=== PATIENT | female | born 2000 | race Caucasian/White ===

== ENCOUNTER 2022-04-09 16:59 | Inpatient (IN) | payer MEDICAID, OTHER ==
[~2022-04-09] VITALS: Ht 157.5 cm; Wt 44.7 kg
[2022-04-09 19:43] LABS: Alanine Aminotransferase 27 U/L (13-56); Albumin 4.3 g/dL (3.4-5.0); Anion Gap 12 (5-15); Aspartate Aminotransferase 25 U/L (15-37); BUN/Creatinine Ratio 24.1; Blood Urea Nitrogen 13 mg/dL (7-18); Calcium 8.7 mg/dL (8.5-10.1); Carbon Dioxide 19 mmol/L (21-32); Chloride 109 mmol/L (98-107); GFR African American 180 mL/min; GFR Non-African American 149 mL/min; Glucose 127 mg/dL (74-106); Potassium 4.6 mmol/L (3.5-5.1); Sodium 140 mmol/L (136-145)
[2022-04-09 19:54] LABS: Alkaline Phosphatase 82 U/L (45-117); Bilirubin, Total 0.8 mg/dL (0.2-1.0); Total Protein 7.9 g/dL (6.4-8.2)
[2022-04-09 19:58] LABS: Basophils # (auto) 0.1 10 ^3/uL (0-0.2); Basophils % (auto) 0.6 % (0.0-2.0); Eosinophils # (auto) 0.1 10 ^3/uL (0-0.8); Eosinophils % (auto) 0.4 % (0.0-7.0); Lymphocytes # (auto) 4.3 10 ^3/uL (0.4-5.4); Lymphocytes % (auto) 29.5 % (10.0-50.0); Mean Corpuscular Hemoglobin 11.5 pg (28.0-32.0); Mean Corpuscular Hgb Conc. 23.7 g/dL (32.0-36.0); Mean Corpuscular Volume 48.7 fL (80.0-100.0); Monocytes # (auto) 0.7 10 ^3/uL (0-1.3); Monocytes % (auto) 4.7 % (0.0-12.0); Neutrophils # (auto) 9.4 10 ^3/uL (1.6-8.6); Neutrophils % (auto) 64.8 % (37.0-80.0); Nucleated Red Blood Cells % 0.1 %; Red Blood Cells 4.51 10^6/uL (4.0-5.20); White Blood Cell 14.5 10^3/uL (4.4-10.8)
[2022-04-09 20:19] LABS: Hemoglobin 5.2 g/dL (12.2-16.2)
[2022-04-09] MEDS ORDERED: ONDANSETRON HCL 4 MG/2 ML VIAL IV PRN (23:30)
[2022-04-09 23:59] LABS: INR 1.12 (0.9-1.15); Partial Thromboplastin Time 25.1 sec (24.6-33.4)
[2022-04-10] VITALS (15 sets, daily range): BP systolic 112–161; BP diastolic 62–107
[2022-04-10] MEDS ORDERED: ACETAMINOPHEN 325 MG TAB PO ONE (02:45)
[2022-04-10 03:13] LABS: % Iron Saturation 2.1 % (15-50)
[2022-04-10 06:30] LABS: Urine Bacteria NONE SEEN /hpf (None Seen); Urine Blood Negative /uL (Negative); Urine Specific Gravity 1.023 (1.001-1.035); Urine WBC <1 /hpf (0 - 5)
[2022-04-10 07:19] LABS: Lactic Acid w/Reflex 3.1 mmol/L (0.4-2.0)
[2022-04-10] MEDS: cefTRIAXone 1GM/50ML D5W 50 ML IV SCH (08:15)
[2022-04-10] MEDS ORDERED: PANTOPRAZOLE 40 MG TAB PO SCH (10:00)
[2022-04-10 10:45] LABS: BUN/Creatinine Ratio 28.1; Calcium 8.6 mg/dL (8.5-10.1)
[2022-04-10 12:21] LABS: Eosinophils # (auto) 0 10 ^3/uL (0-0.8); Eosinophils % (auto) 0.2 % (0.0-7.0); Nucleated Red Blood Cells % 0.7 %
[2022-04-10 12:22] LABS: Basophils # (auto) 0 10 ^3/uL (0-0.2); Basophils % (auto) 0.5 % (0.0-2.0); Hematocrit 23.1 % (36.0-46.0); Lymphocytes % (auto) 10.3 % (10.0-50.0); Mean Corpuscular Hemoglobin 14.6 pg (28.0-32.0); Mean Corpuscular Hgb Conc. 26.5 g/dL (32.0-36.0); Mean Corpuscular Volume 54.9 fL (80.0-100.0); Monocytes # (auto) 0.6 10 ^3/uL (0-1.3); Monocytes % (auto) 6.7 % (0.0-12.0); Neutrophils # (auto) 7.7 10 ^3/uL (1.6-8.6); Neutrophils % (auto) 82.3 % (37.0-80.0); Red Blood Cells 4.22 10^6/uL (4.0-5.20); Red Cell Distribution Width 26.8 % (11.8-14.3); White Blood Cell 9.4 10^3/uL (4.4-10.8)
[2022-04-10 12:28] LABS: Hemoglobin 6.1 g/dL (12.2-16.2)
[2022-04-10] MEDS ORDERED: IOHEXOL 350 MG/ML 100ML IJ ONE (13:52)
[2022-04-10] MEDS ORDERED: ACETAMINOPHEN 650 MG RECT SUPP PR PRN (14:00)
[2022-04-10] MEDS ORDERED: ACETAMINOPHEN 500 MG TAB PO PRN (14:00)
[2022-04-10] MEDS: SODIUM FERR GLUC 62.5MG/5ML 125 MG in SODIUM CHL 0.9% 100 ML IV SCH (21:27)
[2022-04-11 05:00] VITALS: BP 106/71
[2022-04-11 05:43] LABS: Basophils # (auto) 0 10 ^3/uL (0-0.2); Basophils % (auto) 0.5 % (0.0-2.0); Eosinophils # (auto) 0.1 10 ^3/uL (0-0.8); Lymphocytes % (auto) 22.8 % (10.0-50.0); Mean Corpuscular Hemoglobin 17.8 pg (28.0-32.0)
[2022-04-11 05:45] LABS: Eosinophils % (auto) 1.2 % (0.0-7.0); Hematocrit 33.1 % (36.0-46.0); Hemoglobin 9.5 g/dL (12.2-16.2); Lymphocytes # (auto) 1.9 10 ^3/uL (0.4-5.4); Mean Corpuscular Hgb Conc. 28.8 g/dL (32.0-36.0); Mean Corpuscular Volume 61.7 fL (80.0-100.0); Monocytes # (auto) 0.7 10 ^3/uL (0-1.3); Monocytes % (auto) 7.8 % (0.0-12.0); Neutrophils # (auto) 5.8 10 ^3/uL (1.6-8.6); Neutrophils % (auto) 67.7 % (37.0-80.0); Nucleated Red Blood Cells % 0.6 %; Red Blood Cells 5.36 10^6/uL (4.0-5.20); White Blood Cell 8.5 10^3/uL (4.4-10.8)
[2022-04-11 05:59] LABS: Red Cell Distribution Width 43.1 % (11.8-14.3)
[2022-04-11] MEDS: cefTRIAXone 1GM/50ML D5W 50 ML IV SCH (08:56)
[2022-04-11 09:00] VITALS: BP 128/79
[2022-04-11] MEDS ORDERED: PANTOPRAZOLE 40 MG/10 ML VIAL INJ IV SCH (10:00)
[2022-04-11] MEDS: levoFLOXacin 500 MG TAB PO SCH (10:37)
[2022-04-11] MEDS: SODIUM FERR GLUC 62.5MG/5ML 125 MG in SODIUM CHL 0.9% 100 ML IV SCH (12:00)
[2022-04-11 12:30] VITALS: BP 117/70
[2022-04-11 16:57] VITALS: BP 141/88
[2022-04-11] MEDS: FERROUS SULFATE 300 MG/5 ML ORAL LIQ PO SCH (17:35)
[2022-04-11] MEDS ORDERED: FERROUS SULFATE 325mg EC TAB PO SCH (18:00)
[2022-04-11] MEDS: PANTOPRAZOLE 40 MG TAB PO SCH (22:00)
[2022-04-12 00:30] VITALS: BP 135/70
[2022-04-12 06:03] VITALS: BP 130/77
[2022-04-12 09:34] VITALS: BP 130/79
[2022-04-12] MEDS ORDERED: LEVO500T31 PO (09:51)
[2022-04-12] MEDS ORDERED: FERR-7 PO (09:51)
[2022-04-12] MEDS ORDERED: PANT40T PO (09:51)
[2022-04-12] MEDS: FERROUS SULFATE 300 MG/5 ML ORAL LIQ PO SCH (09:56)
[2022-04-12] MEDS: PANTOPRAZOLE 40 MG TAB PO SCH (09:57)
[2022-04-12] MEDS ORDERED: PANTOPRAZOLE 40 MG TAB PO SCH (10:00)
[2022-04-12] MEDS: levoFLOXacin 500 MG TAB PO SCH (10:00)
[2022-04-12 12:27] VITALS: BP 131/75
== END 2022-04-12 15:21 | disposition home or self-care (01) | DRG 720 ==
LOC: ER 16:59 → OVERFLOW 23:28 → EAST 04-10 16:00
PROVIDERS: ADMIT Nurse Practitioner; ATTEND Family Medicine
PROC: 30233N1 Transfusion of Nonautologous Red Blood Cells into Peripheral Vein, Percutaneous Approach (ICD-10-PCS; principal; 2022-04-10)
DX: A41.9 Sepsis, unspecified organism (principal); R71.0 Precipitous drop in hematocrit; M25.551 Pain in right hip; N92.0 Excessive and frequent menstruation with regular cycle; Z96.641 Presence of right artificial hip joint; R55 Syncope and collapse; Z74.01 Bed confinement status; Z20.822 Contact with and (suspected) exposure to COVID-19
CPT/HCPCS: 36415; 36430; 73700; 80048; 80053; 81001; 83540; 83550; 83605; 85025; 85610; 85730; 86850; 86900; 86901; 86920; 87040; 87426; 96365; G0378; J0696

== ENCOUNTER 2024-11-20 10:05 | Inpatient (IN) | payer MEDICAID ==
[~2024-11-20] VITALS: Ht 157.5 cm; Wt 39.6 kg
[~2024-11-20 10:05] MED LIST: FERR-7 PO; PANT40T PO
--- NOTE | 2024-11-20 10:59 | ED.PDOC ---
GI ASSESSMENT HPI Comments 23 y/o F, brought in by siblings, with PMHx of cerebral palsy and HTN presents to the ED for CC of constipation. Per patient's siblings, patient has been unable to have a regular bowel movement since, 11/10/24 without the use of enemas or milk of magnesium. Patient's siblings report, patient usually has regular scheduled bowel movements however, has not had one in the last x9days. No other symptoms or modifying factors present at this time. Chief Complaint: Constipation Time Seen by MD: 10:55 Reviewed Notes: Nurses Notes, Medications, Allergies Allergies: Coded Allergies: No Known Drug Allergy (Verified Allergy, Unknown, 04/09/22) Home Meds Active Scripts Ferrous Sulfate (Iron) 325 Mg Tab, 325 MG PO BID, #60 TAB Prov:MARIO ECNARNACION MD 04/12/22 Pantoprazole Sodium Sesquihydr (Pantoprazole Sodium) 40 Mg Tab, 40 MG PO BID, #60 TAB Prov:MARIO ENCARNACION MD 04/12/22 Information Source: Relative (Sibling) Mode of Arrival: Wheelchair Timing: Weeks Duration: Since onset Prehospital treatment: None Quality: None Vomitus: None Stool: Impaction Severity: Moderate Recent: None Recent Hx of: None Pain Location: None Modifying Factors: Nothing Associated sign and symptoms: Constipation Past Medical History PAST MEDICAL HISTORY: Anemia Surgical History: Denies all surgeries LIGHT OIL OPERATOR History: Denies all LIGHT OIL OPERATOR Hx Family History Family History: Reviewed,noncontributory to illness Social History Smoker: Non-Smoker Alcohol: Denies ETOH Use Drugs: Denies Drug Use Lives In: Home Constitutional: denies: chills, diaphoresis, fatigue, fever, malaise, sweats, weakness, others EENTM: denies: blurred vision, double vision, ear bleeding, ear discharge, ear drainage, ear pain, ear ringing, eye pain, eye redness, hearing loss, mouth pain, mouth swelling, nasal discharge, nose bleeding, nose congestion, nose pain, photophobia, tearing, throat pain, throat swelling, voice changes, others Respiratory: denies: cough, hemoptysis, orthopnea, SOB at rest, shortness of breath, SOB with excertion, stridor, wheezing, others Cardiovascular: denies: chest pain, dizzy spells, diaphoresis, Dyspnea on exertion, edema, irregular heart beat, left arm pain, lightheadedness, p alpitations, PND, syncope, others Gastrointestinal: reports: constipated; denies: abdomen distended, abdominal pain, blood streaked bowels, diarrhea, dysphagia, difficulty swallowing, hematemesis, melena, nausea, poor appetite, poor fluid intake, rectal bleeding, rectal pain, vomiting, others Genitourinary: denies: abnormal vagina bleeding, burning, dyspareunia, dysuria, flank pain, frequency, hematuria, incontinence, pain, , vagina di scharge, urgency, others Neurological: denies: dizziness, fainting, headache, left sided numbness, left sided weakness, numbness, paresthesia, pre-existing deficit, right sided numbness, right sided weakness, seizure, speech problems, tingling, tremors, weakness, others Musculoskeletal: denies: back pain, gout, joint pain, joint swelling, muscle pain, muscle stiffness, neck pain, others Integumetry: denies: bruises, change in color, change in hair/nails, dryness, laceration, lesions, lumps, rash, wounds, others Allergic/Immunocompromised: denies: Difficulty Healing, Frequent Infections, Hives, Itching, others Hematologic/Lymphatic: denies: anemia, blood clots, easy bleeding, easy bruising, swollen glands, others Endocrine: denies: excessive hunger, excessive sweating, excessive thirst, excessive urination, flushing, intolerance to cold, intolerance to heat, unexplained weight gain, unexplained weight loss, others Psychiatric: denies: anxiety, bipolar disorder, depression, hopeless, panic disorder, schizophrenia, sleepless, suicidal, others All Other Systems: Reviewed and Negative Physical Exam General Appearance: Moderate Distress HEENT: Normal ENT Inspection, Pharynx Normal, TMs Normal Neck: Full Range of Motion, Non-Tender, Normal, Normal Inspection Respiratory: Chest Non-Tender Cardiovascular: No Edema, No JVD, No Murmur, No Gallop, Normal Peripheral Pulses, Tachycardia Breast Exam: Deferred Gastrointestinal: No Organomegaly, Non Tender, No Pulsatile Mass, Normal Bowel Sounds, Soft Genitalia: Deferred Pelvic: Deferred Rectal: Deferred Extremities: No calf tenderness, Normal range of motion Musculoskeletal : Apperance: Normal Neurologic: No Motor Deficits, No Sensory Deficits, Other (Cerebral palsy) Cerebellar Function: NOT DONE Reflexes: NOT DONE Skin: Dry, Normal Color, Warm Peripheral Pulses: 3+ Radial (R), 3+ Radial (L) Lymphatic: No Adenopathy Was a procedure done? Was a procedure done?: No GI differential Dx Differential Diagnosis: Bowel Obstruction, Constipation, Esophagitis, Gastritis/PUD, Gastroenteritis X-Ray, Labs, Meds, VS Vital Signs Date Time Temp Pulse Resp B/P (MAP) Pulse Ox O2 Delivery O2 Flow Rate FiO2 11/20/24 11:00 100.4 130 18 169/95 (119) 90 100.4 11/20/24 10:10 98.1 137 24 141/70 (93) 96 98.1 Patient appropriate. Family at bedside. Mild fever. Has not had a bowel movement in days. Cerebral palsy. Establish intravenous access. Was given fluids. Possible urosepsis. Possible colitis. Explained to the family. She continues to be tachycardic. Possible urosepsis. Continue to monitor. Time of 1ST Reevaluation: 11:25 Reevaluation 1ST: Unchanged Patient Education/Counseling: Diagnosis, Treatment Family Education/Counseling: No Family Present Departure 1 Departure Time of Disposition: 12:02 Impression: Primary Impression: Cerebral palsy Qualified Codes: G80.9 - Cerebral palsy, unspecified Additional Impression: Irritable bowel syndrome Qualified Codes: K58.1 - Irritable bowel syndrome with constipation Disposition: ADMITTED INPATIENT Admit to: Med Surg Condition: Guarded Critical Care Note Critical Care Time?: No Stability Stability form required: No Heart Score Heart Score: Heart Score Response (Comments) Value History N/A 0 EKG N/A 0 Age N/A 0 Risk Factors N/A 0 Troponin N/A 0 Total 0 I personally scribed for YAKOV JEAN MD ([email or web address]) on 11/20/24 at 10:59. E lectronically submitted by Nelly Harrell ([email or web address]). I personally scribed for YAKOV JEAN MD ([email or web address]) on 11/20/24 at 11:02. Electronically submitted by Nelly Harrell ([email or web address]). I personally scribed for YAKOV JEAN MD ([email or web address]) on 11/20/24 at 11:10. Electronically submitted by Nelly Harrell ([email or web address]). YAKOV JEAN MD November 20, 2024 10:59
[2024-11-20 12:00] VITALS: PULSE 130; RESP 18; O2SAT 99
[2024-11-20] MEDS: SODIUM CHLORIDE 0.9% 1,000 ML IV ONE ×2 (12:25→12:52)
--- NOTE | 2024-11-20 12:46 | DVH ---
EXAM: XY CHEST PORTABLE REASON FOR EXAM: sob TECHNIQUE: 1 view of the chest COMPARISON: None FINDINGS/IMPRESSION: LUNGS: No pleural effusion, consolidation, or pneumothorax MEDIASTINUM: Unremarkable BONES: No acute osseous abnormality OTHER: None
--- NOTE | 2024-11-20 13:14 | DVH ---
Exam: CT CT AB PEL WO CON-NO ORAL OR IV History: colitis Comparison Study: None TECHNIQUE: Multidetector CT of the abdomen was performed from lung bases to pubic symphysis. Imaging was performed without IV contrast. Axial, coronal and sagittal multiplanar reformats were obtained fr om the axial data set by the technologist. Radiation Dose : 1. Abdomen/Pelvis: CTDIvol 9.8 mGy, DLP 532.3 mGy*cm. FINDINGS: Evaluation of solid organs is limited due to lack of intravenous contrast use and significant motion artifact. Evaluation is nearly nondiagnostic limited due to motion artifact. There is large stool burden in the rectosigmoid colon with wall thickening suggestive of proctocolitis. IMPRESSION: Evaluation is nearly nondiagnostic limited due to motion artifact. There is large stool burden in the rectosigmoid colon with wall thickening suggestive of proctocolitis.
[2024-11-20 13:19] LABS: Potassium 4.3 mmol/L (3.5-5.1); Sodium 140 mmol/L (136-145)
[2024-11-20 13:20] LABS: Anion Gap 10 (5-15); Carbon Dioxide 21 mmol/L (20-31)
[2024-11-20 13:21] LABS: Calcium 9.8 mg/dL (8.7-10.4); Chloride 109 mmol/L (98-107)
[2024-11-20 13:25] LABS: Blood Urea Nitrogen 14 mg/dL (9-23)
[2024-11-20 13:26] LABS: Glucose 116 mg/dL (74-106)
[2024-11-20 13:37] LABS: Basophils # (auto) 0.1 10 ^3/uL (0-0.2); Basophils % (auto) 1.3 % (0.0-2.0); Eosinophils # (auto) 0 10 ^3/uL (0-0.8); Eosinophils % (auto) 0.1 % (0.0-7.0); Hematocrit 34.3 % (36.0-46.0); Hemoglobin 9.8 g/dL (12.2-16.2); Lymphocytes # (auto) 0.8 10 ^3/uL (0.4-5.4); Lymphocytes % (auto) 8.8 % (10.0-50.0); Mean Corpuscular Hemoglobin 15.4 pg (28.0-32.0); Mean Corpuscular Hgb Conc. 28.7 g/dL (32.0-36.0); Mean Corpuscular Volume 53.5 fL (80.0-100.0); Monocytes # (auto) 0.4 10 ^3/uL (0-1.3); Monocytes % (auto) 4.4 % (0.0-12.0); Neutrophils # (auto) 8.1 10 ^3/uL (1.6-8.6); Neutrophils % (auto) 85.4 % (37.0-80.0); Nucleated Red Blood Cells % 0.1 %; Platelet Count (auto) 410 10^3/uL (140-450); Red Blood Cells 6.41 10^6/uL (4.0-5.20); Red Cell Distribution Width 23.1 % (11.8-14.3); White Blood Cell 9.5 10^3/uL (4.4-10.8)
[2024-11-20 13:46] LABS: Lactic Acid w/Reflex 2.5 mmol/L (0.4-2.0)
[2024-11-20] MEDS: cefTRIAXone 1GM/50ML D5W 50 ML IV ONE ×2 (14:07→14:13)
[2024-11-20 14:23] LABS: Anisocytosis Slight; Hypochromia Marked
[2024-11-20 14:24] LABS: Ovalocytes FEW; Platelet Estimate Adequate; Tear Drop Cells MODERATE
[2024-11-20] MEDS: metroNIDAZOLE 500MG/100ML 100 ML IV ONE ×2 (14:30)
[2024-11-20] MEDS ORDERED: LACTULOSE 20Gm/30ML SOLN PO PRN ×2 (16:45→17:15)
--- NOTE | 2024-11-20 16:47 | DVHHP2 ---
History of Present Illness Reason for Visit: Abdominal pain History of Present Illness Most of the history obtained from patient's siblings as patient has cerebral palsy. 23-year-old female with a known history of cerebral palsy, chronic anemia presented to the hospital with the abdominal pain found to have constipation. Patient also had lactic acidosis. Patient is currently is being worked up for any underlying infection UA still pending. 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 Allergies: Coded Allergies: No Known Drug Allergy (Verified Allergy, Unknown, 04/09/22) Exam Vital Signs Vital Signs Date Time Temp Pulse Resp B/P (MAP) Pulse Ox O2 Delivery O2 Flow Rate FiO2 11/20/24 15:39 100.2 131 16 140/77 (98) 96 100.2 11/20/24 12:00 Room Air* 0 21 Exam HEENT pupils are reactive Neck is supple CV is S1-S2 regular rate and rhythm Respiratory are clear GI positive bowel sound Extremity no edema GRINDER SET UP OPERATOR GEAR TOOL following commands Labs/Xrays Labs Test 11/20/24 15:06 11/20/24 12:59 Range/Units Lactic Acid Level 1.1 0.4-2.0 mmol/L White Blood Count 9.5 4.4-10.8 10^3/uL Red Blood Count 6.41 H 4.0-5.20 10^6/uL Hemoglobin 9.8 L 12.2-16.2 g/dL Hematocrit 34.3 L 36.0-46.0 % Mean Corpuscular Volume 53.5 L 80.0-100.0 fL Mean Corpuscular Hemoglobin 15.4 L 28.0-32.0 pg Mean Corpuscular Hemoglobin Concent 28.7 L 32.0-36.0 g/dL Red Cell Distribution Width 23.1 H 11.8-14.3 % Platelet Count 410 140-450 10^3/uL Mean Platelet Volume 9.0 6.9-10.8 fL Neutrophils (%) (Auto) 85.4 H 37.0-80.0 % Lymphocytes (%) (Auto) 8.8 L 10.0-50.0 % Monocytes (%) (Auto) 4.4 0.0-12.0 % Eosinophils (%) (Auto) 0.1 0.0-7.0 % Basophils (%) (Auto) 1.3 0.0-2.0 % Neutrophils # (Auto) 8.1 1.6-8.6 10 ^3/uL Lymphocytes # (Auto) 0.8 0.4-5.4 10 ^3/uL Monocytes # (Auto) 0.4 0-1.3 10 ^3/uL Eosinophils # (Auto) 0 0-0.8 10 ^3/uL Basophils # (Auto) 0.1 0-0.2 10 ^3/uL Nucleated Red Blood Cells 0.1 % Platelet Estimate Adequate Hypochromasia (manual) Marked Anisocytosis (manual) Slight Microcytosis Marked Tear Drop Cells Moderate Ovalocytes Few Katty Cells Few Schistocytes Few Sodium Level 140 136-145 mmol/L Potassium Level 4.3 3.5-5.1 mmol/L Chloride Level 109 H 98-107 mmol/L Carbon Dioxide Level 21 20-31 mmol/L Anion Gap 10 5-15 Blood Urea Nitrogen 14 9-23 mg/dL Creatinine 0.50 L 0.550-1.02 mg/dL Glomerular Filtration Rate Calc 133 >90 mL/min BUN/Creatinine Ratio 28.0 H 10.0-20.0 Serum Glucose 116 H 74-106 mg/dL Calcium Level 9.8 8.7-10.4 mg/dL Assessment/Plan Assessment/Plan 23-year-old female with a known history of cerebral palsy, iron deficiency anemia presented to the hospital with abdominal pain found to have 1. Abdominal pain 2. Constipation 3. Lactic acidosis 4. Iron deficiency anemia 5. Cerebral palsy -follow up UA urine culture, IV hydration, repeat lactic acid, bowel regimen, iron panel, start oral iron. Plan discussed with: Patient My Orders Orders - JOHN SAMUELS MD Procedure Category Date Status Time Lactulose Oral PHA 11/20/24 Verified 16:45 Ferrous Sulfate Tablet PHA 11/20/24 Verified 18:00 Date of Service: November 20, 2024 Billing Provider: JOHN SAMUELS MD Common Visit Codes: NOT BILLABLE JOHN SAMUELS MD November 20, 2024 16:47
[2024-11-20] MEDS ORDERED: ONDANSETRON HCL 4 MG/2 ML VIAL IV PRN (17:15)
[2024-11-20] MEDS ORDERED: HYDROcodone-ACET 5/325MG TAB PO PRN (17:15)
[2024-11-20] MEDS ORDERED: DOCUSATE SOD 100 MG CAP PO PRN (17:15)
[2024-11-20] MEDS ORDERED: MORPHINE SULFATE INJ 2 MG/ml SYRG IV PRN (17:15)
[2024-11-20 17:30] LABS: Urine Bacteria FEW /hpf (None Seen); Urine Blood Negative /uL (Negative); Urine Clarity Clear (Clear); Urine Color Colorless (Yellow); Urine Protein, UAD Negative (Negative); Urine Specific Gravity 1.011 (1.001-1.035); Urine Squamous Epithelial Cell FEW /hpf (<5); Urine Urobilinogen Normal (Negative); Urine WBC 5 /HPF (0-5)
[2024-11-20 17:37] LABS: % Iron Saturation 1.6 % (15-50)
[2024-11-20] MEDS ORDERED: FERROUS SULFATE 325mg EC TAB PO SCH (18:00)
[2024-11-20 19:55] VITALS: BP 168/71; PULSE 98; RESP 22; TEMP 100.4; O2SAT 97
[2024-11-20 20:05] VITALS: PULSE 98; RESP 22; O2SAT 97
[2024-11-20] MEDS: ACETAMINOPHEN 325 MG TAB PO PRN (20:25)
[2024-11-20] MEDS: SODIUM CHLORIDE 0.9% 1,000 ML IV SCH (20:26)
[2024-11-20] MEDS: FERROUS SULFATE 325mg EC TAB PO SCH (20:26)
[2024-11-21] VITALS (7 sets, daily range): BP systolic 117–137; BP diastolic 67–82; PULSE 84–106; RESP 16–18; TEMP 97.5–98.3; O2SAT 95–97
[2024-11-21 08:13] LABS: Basophils # (auto) 0 10 ^3/uL (0-0.2); Eosinophils # (auto) 0.1 10 ^3/uL (0-0.8); Lymphocytes # (auto) 2.1 10 ^3/uL (0.4-5.4); Mean Corpuscular Hemoglobin 15.9 pg (28.0-32.0); Monocytes # (auto) 0.4 10 ^3/uL (0-1.3); Nucleated Red Blood Cells % 0.1 %
[2024-11-21 08:15] LABS: Basophils % (auto) 0.4 % (0.0-2.0); Hematocrit 31.1 % (36.0-46.0); Hemoglobin 9.2 g/dL (12.2-16.2); Lymphocytes % (auto) 33.8 % (10.0-50.0); Mean Corpuscular Hgb Conc. 29.5 g/dL (32.0-36.0); Monocytes % (auto) 6.7 % (0.0-12.0); Neutrophils # (auto) 3.6 10 ^3/uL (1.6-8.6); Neutrophils % (auto) 58.1 % (37.0-80.0); Platelet Count (auto) 248 10^3/uL (140-450); Red Blood Cells 5.75 10^6/uL (4.0-5.20); Red Cell Distribution Width 22.4 % (11.8-14.3); White Blood Cell 6.2 10^3/uL (4.4-10.8)
[2024-11-21 08:49] LABS: Anisocytosis Slight; Hypochromia Moderate; Ovalocytes FEW; Platelet Estimate Adequate
[2024-11-21 08:50] LABS: Tear Drop Cells MODERATE
--- NOTE | 2024-11-21 16:22 | DVHDS2 ---
Discharge Summary Date of Admission November 20, 2024 at 17:11 Date of Discharge: November 21, 2024 Labs/Diagnostic Data: Laboratory Results Test 11/21/24 07:36 11/20/24 17:00 11/20/24 15:06 11/20/24 12:59 White Blood Count 6.2 10^3/uL (4.4-10.8) Red Blood Count 5.75 10^6/uL (4.0-5.20) Hemoglobin 9.2 g/dL (12.2-16.2) Hematocrit 31.1 % (36.0-46.0) Mean Corpuscular Volume 54.0 fL (80.0-100.0) Mean Corpuscular Hemoglobin 15.9 pg (28.0-32.0) Mean Corpuscular Hemoglobin Concent 29.5 g/dL (32.0-36.0) Red Cell Distribution Width 22.4 % (11.8-14.3) Platelet Count 248 10^3/uL (140-450) Mean Platelet Volume 8.7 fL (6.9-10.8) Neutrophils (%) (Auto) 58.1 % (37.0-80.0) Lymphocytes (%) (Auto) 33.8 % (10.0-50.0) Monocytes (%) (Auto) 6.7 % (0.0-12.0) Eosinophils (%) (Auto) 1.0 % (0.0-7.0) Basophils (%) (Auto) 0.4 % (0.0-2.0) Neutrophils # (Auto) 3.6 10 ^3/uL (1.6-8.6) Lymphocytes # (Auto) 2.1 10 ^3/uL (0.4-5.4) Monocytes # (Auto) 0.4 10 ^3/uL (0-1.3) Eosinophils # (Auto) 0.1 10 ^3/uL (0-0.8) Basophils # (Auto) 0 10 ^3/uL (0-0.2) Nucleated Red Blood Cells 0.1 % Platelet Estimate Adequate Hypochromasia (manual) Moderate Anisocytosis (manual) Slight Microcytosis Moderate Tear Drop Cells Moderate Ovalocytes Few Urine Color Colorless (Yellow) Urine Clarity Clear (Clear) Urine pH 8.0 (5.0-9.0) Urine Specific [place] 1.011 (1.001-1.035) Urine Protein Negative (Negative) Urine Ketones Trace (Negative) Urine Blood Negative /uL (Negative) Urine Nitrite Negative (Negative) Urine Bilirubin Negative (Negative) Urine Urobilinogen Normal mg/dL (Negative) Urine Leukocyte Esterase Negative /uL (Negative) Urine RBC 5 /hpf (0 - 4) Urine Microscopic WBC 5 /HPF (0-5) Urine Squamous Epithelial Cells Few /hpf (<5) Urine Bacteria Few /hpf (None Seen) Urine Glucose Normal mg/dL (Normal) Lactic Acid Level 1.1 mmol/L (0.4-2.0) Katty Cells Few Schistocytes Few Sodium Level 140 mmol/L (136-145) Potassium Level 4.3 mmol/L (3.5-5.1) Chloride Level 109 mmol/L (98-107) Carbon Dioxide Level 21 mmol/L (20-31) Anion Gap 10 (5-15) Blood Urea Nitrogen 14 mg/dL (9-23) Creatinine 0.50 mg/dL (0.550-1.02) Glomerular Filtration Rate Calc 133 mL/min (>90) BUN/Creatinine Ratio 28.0 (10.0-20.0) Serum Glucose 116 mg/dL (74-106) Calcium Level 9.8 mg/dL (8.7-10.4) Iron Level 6 ug/dL (50-170) Total Iron Binding Capacity 365 ug/dL (250-425) Percent Iron Saturation 1.6 % (15-50) Other Laboratory Tests 11/21/24 07:36 11/20/24 12:59 Brief Hx & Hospital Course: 23-year-old female with a known history of cerebral palsy, iron deficiency anemia presented to the hospital with abdominal pain found to have constipation and lactic acidosis. Patient also has chronic iron deficiency anemia. Patient is guarded given a bowel regimen and IV hydration currently stable to be discharged. Condition at Discharge: Stable Final Diagnosis/Problems List 23-year-old female with a known history of cerebral palsy, iron deficiency anemia presented to the hospital with abdominal pain found to have 1. Abdominal pain resolved 2. Constipation resolved 3. Lactic acidosis, improved 4. Iron deficiency anemia, on iron pills 5. Cerebral palsy Discharge Disposition: Home SNF Discharge Will this Physician continue t: No Discharge Instruct/Medications Diet: Regular Activity: No Restrictions, As Tolerated Follow Up/Referral: Please follow up with the PCP in 1-2 weeks Medications: Resume home medications. Discharge Statement: "Patient was advised to return to the ER or call 911 if any headaches, dizziness, shortness of breath, chest pain, abdominal pain, bleeding, fevers, or worsening of medical condition. Patient was counseled about treatment plan, medications, possible side effects, patientverbalized understanding. All questions were answered to the best of my ability. This discharge took greater then 30 minutes in planning, reviewing documentation, counseling the patient, and discussing with other team members." ASSESSMENT ASSESSMENT Assessment 23-year-old female with a known history of cerebral palsy, iron deficiency anemia presented to the hospital with abdominal pain found to have 1. Abdominal pain resolved 2. Constipation resolved 3. Lactic acidosis, improved 4. Iron deficiency anemia, on iron pills 5. Cerebral palsy Date of Service: November 21, 2024 Billing Provider: JOHN SAMUELS MD Common Visit Codes: NOT BILLABLE JOHN SAMUELS MD November 21, 2024 16:22
== END 2024-11-21 17:20 | disposition home or self-care (01) | DRG 247 ==
LOC: ER 10:05 → OVERFLOW 17:11 → EAST 19:56
PROVIDERS: ADMIT Internal Medicine; ATTEND Internal Medicine
DX: K56.41 Fecal impaction (principal); E87.20 Acidosis, unspecified; K58.1 Irritable bowel syndrome with constipation; D50.9 Iron deficiency anemia, unspecified; G80.8 Other cerebral palsy; I10 Essential (primary) hypertension
CPT/HCPCS: 36415; 71045; 74176; 80048; 81001; 83540; 83550; 83605; 85025; 87040; 87086; 96365; G0378; J3490

== ENCOUNTER 2025-05-25 17:32 | Inpatient (IN) | payer MEDICAID ==
[~2025-05-25] VITALS: Ht 157.5 cm; Wt 42.1 kg
[2025-05-25 17:59] VITALS: PULSE 130; RESP 29; O2SAT 96
--- NOTE | 2025-05-25 18:16 | ED.PDOC ---
History of Present Illness AVE Martinez is a 24-year-old female with prior medical history of cerebral palsy, anemia and recurrent UTIs, who presents today BIB due to generalized weakness. The patient is nonverbal, history is taken from her brothers at bedside. At 4 pm the patient began to seem lethargic and started gagging, approximately half an hour later the patient gagged, became cyanotic, and seemed to become unresponsive for two minutes. Her family promptly took her to the fire department across the street and she was brought to this institution via EMS. On initial evaluation, the patient is febrile, tachycardic, and saturating adequately on room air. Per her brothers, who are her primary care takers, at bedside, the patient has been well in recent days, they deny any fever, lethargy, changes in her eating habits, or changes in urine or bowel movements. Brother states that she does have a history of anemia, has previously required a blood transfusion in 1 or 2 years ago. Typically has heavy menstrual cycles. Just finished her last menstrual cycle yesterday. Chief Complaint: General Weakness Time Seen by MD: 18:30 Allergies: Coded Allergies: No Known Drug Allergy (Verified Allergy, Unknown, 04/09/22) Home Meds Active Scripts Lactulose (Lactulose) 10 Gm/15 Ml Desiree, 10 GM PO DAILY for 30 Days, #200 ML Prov:DEMETRIUS FARRIS RESIDENT 05/27/25 Ferrous Sulfate (Iron) 325 Mg Tab, 325 MG PO BID, #60 TAB Prov:MARIO ENCARNACION MD 04/12/22 Pantoprazole Sodium Sesquihydr (Pantoprazole Sodium) 40 Mg Tab, 40 MG PO BID, #60 TAB Prov:MARIO ENCARNACION MD 04/12/22 Information Source: Relative (Sibling) Mode of Arrival: EMS Severity: Mild Timing: Hours Duration: Since onset Past Medical History PAST MEDICAL HISTORY: Anemia Past Medical History (Other): Cerebral palsy Surgical History (Other): Left side hip surgery 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 Family History Family History: Reviewed,noncontributory to illness, Family hx of DM, Family hx of Cancer, Family hx of HTN Social History Smoker: Non-Smoker Alcohol: Denies ETOH Use Drugs: Denies Drug Use Lives In: Home Constitutional: reports: fever; denies: chills, diaphoresis, fatigue, malaise, sweats, weakness, others EENTM: denies: blurred vision, double vision, ear bleeding, ear discharge, ear drainage, ear pain, ear ringing, eye pain, eye redness, hearing loss, mouth pain, mouth swelling, nasal discharge, nose bleeding, nose congestion, nose pain, photophobia, tearing, throat pain, throat swelling, voice changes, others Respiratory: denies: cough, hemoptysis, orthopnea, SOB at rest, shortness of breath, SOB with excertion, stridor, wheezing, others Cardiovascular: denies: chest pain, dizzy spells, diaphoresis, Dyspnea on exertion, edema, irregular heart beat, left arm pain, lightheadedness, palpitations, PND, syncope, others Gastrointestinal: reports: nausea; denies: abdomen distended, abdominal pain, blood streaked bowels, constipated, diarrhea, dysphagia, difficulty swallowing, hematemesis, melena, poor appetite, poor fluid intake, rectal bleeding, rectal pain, vomiting, others Genitourinary: denies: abnormal vagina bleeding, burning, dyspareunia, dysuria, flank pain, frequency, hematuria, incontinence, pain, , vagina discharge, urgency, others Neurological: denies: dizziness, fainting, headache, left sided numbness, left sided weakness, numbness, paresthesia, pre-existing deficit, right sided numbness, right sided weakness, seizure, speech problems, tingling, tremors, weakness, others Musculoskeletal: denies: back pain, gout, joint pain, joint swelling, muscle pain, muscle stiffness, neck pain, others Integumetry: denies: bruises, change in color, change in hair/nails, dryness, laceration, lesions, lumps, rash, wounds, others Allergic/Immunocompromised: denies: Difficulty Healing, Frequent Infections, Hives, Itching, others Hematologic/Lymphatic: reports: anemia; denies: blood clots, easy bleeding, easy bruising, swollen glands, others Endocrine: denies: excessive hunger, excessive sweating, excessive thirst, excessive urination, flushing, intolerance to cold, intolerance to heat, unexplained weight gain, unexplained weight loss, others Psychiatric: denies: anxiety, bipolar disorder, depression, hopeless, panic disorder, schizophrenia, sleepless, suicidal, others Unable to Obtain due to: Other (patient is nonverbal ) All Other Systems: Reviewed and Negative Physical Exam General Appearance: Mild Distress HEENT: Pale Conjuntivae (L), Pale Conjuntivae (R), PERRL/EOMI, Pharynx Normal Neck: Full Range of Motion, Non-Tender, Normal Inspection Respiratory: Chest Non-Tender, No Accessory Muscle Use, No Respiratory Distress, Normal Breath Sounds Cardiovascular: No Edema, No Murmur, Normal Peripheral Pulses, Tachycardia Breast Exam: Deferred Gastrointestinal: Other (Abdomen nondistended, hyperactive bowel sounds, soft, grimacing is noted on palpation of lower abdominal quadrants, no palpable masses.) Genitalia: Deferred Pelvic: Deferred Rectal: Deferred Extremities: Normal capillary refill, Non-tender, No pedal edema, Other (Deformities of bilateral feet due to contracture ) Neurologic: Other (Patient is responsive to the environment and her siblings, further evaluation limited to due baseline ) Cerebellar Function: Unable to Test Reflexes: NOT DONE Skin: Other (No bruising, ulcerations, or wounds noted on evaluation of skin ) Peripheral Pulses: 3+ dorsalis pedis (R), 3+ dorsalis pedis (L) Lymphatic: Other (No cervical adenopaty) Was a procedure done? Was a procedure done?: No Differential Dx Considerations may include: Sepsis, syncope, pneumonia, bronchitis, influenza, COVID, cystitis, pyeloephritis, gastroenteritis, enterocolitis, gastritis, cholecystitis, appendicitis, diverticulitis X-Ray, Labs, Meds, VS Vital Signs Date Time Temp Pulse Resp B/P (MAP) Pulse Ox O2 Delivery O2 Flow Rate FiO2 05/25/25 19:30 99 18 98 Room Air* 0 21 05/25/25 19:30 98.6 119 24 111/90 (97) 96 98.6 05/25/25 17:59 100.8 130 29 131/69 (89) 96 100.8 05/25/25 17:59 130 29 96 Room Air* 0 21 05/25/25 17:40 99.0 130 18 130/90 92 99.0 Lab Test 05/25/25 18:58 05/25/25 18:55 05/25/25 18:41 Range/Units Prothrombin Time 11.0 9.3-11.8 sec Prothrombin Time INR 1.04 0.9-1.15 Activated Partial Thromboplast Time 20.6 L 24.5-34.5 SEC White Blood Count 9.2 4.4-10.8 10^3/uL Red Blood Count 5.51 H 4.0-5.20 10^6/uL Hemoglobin 7.0 *L 12.2-16.2 g/dL Hematocrit 27.7 L 36.0-46.0 % Mean Corpuscular Volume 50.4 L 80.0-100.0 fL Mean Corpuscular Hemoglobin 12.8 L 28.0-32.0 pg Mean Corpuscular Hemoglobin Concent 25.4 L 32.0-36.0 g/dL Red Cell Distribution Width 23.7 H 11.8-14.3 % Platelet Count 330 140-450 10^3/uL Mean Platelet Volume 9.3 6.9-10.8 fL Neutrophils (%) (Auto) 83.2 H 37.0-80.0 % Lymphocytes (%) (Auto) 10.1 10.0-50.0 % Monocytes (%) (Auto) 5.4 0.0-12.0 % Eosinophils (%) (Auto) 0.5 0.0-7.0 % Basophils (%) (Auto) 0.8 0.0-2.0 % Neutrophils # (Auto) 7.7 1.6-8.6 10 ^3/uL Lymphocytes # (Auto) 0.9 0.4-5.4 10 ^3/uL Monocytes # (Auto) 0.5 0-1.3 10 ^3/uL Eosinophils # (Auto) 0 0-0.8 10 ^3/uL Basophils # (Auto) 0.1 0-0.2 10 ^3/uL Nucleated Red Blood Cells 0.0 % Platelet Estimate Adequate Hypochromasia (manual) Marked Poikilocytosis (manual) Moderate Anisocytosis (manual) Moderate Microcytosis Marked Tear Drop Cells Moderate Sodium Level 143 136-145 mmol/L Potassium Level 5.2 H 3.5-5.1 mmol/L Chloride Level 110 H 98-107 mmol/L Carbon Dioxide Level 20 20-31 mmol/L Anion Gap 13 5-15 Blood Urea Nitrogen 11 9-23 mg/dL Creatinine 0.49 L 0.550-1.02 mg/dL Glomerular Filtration Rate Calc 133 >90 mL/min BUN/Creatinine Ratio 22.4 H 10.0-20.0 Serum Glucose 104 74-106 mg/dL Lactic Acid Level 1.3 0.4-2.0 mmol/L Calcium Level 8.7 8.7-10.4 mg/dL Iron Level 65 50-170 ug/dL Total Iron Binding Capacity 367 250-425 ug/dL Percent Iron Saturation 17.7 15-50 % Total Bilirubin 0.5 0.2-1.0 mg/dL Aspartate Amino Transferase (AST) 103 H 13-40 U/L Alanine Aminotransferase (ALT) 46 H 7-40 U/L Alkaline Phosphatase 94 46-116 U/L Total Protein 7.4 5.7-8.2 g/dL Albumin 4.5 3.2-4.8 g/dL Thyroid Stimulating Hormone (TSH) 2.06 0.55-4.78 uIU/mL Microbiology Date/Time Source Procedure Growth Status 05/25/25 19:31 Blood Blood Culture - Final NO GROWTH AFTER 5 DAYS OF INCUBATION. Complete 05/25/25 18:55 Blood Blood Culture - Final NO GROWTH AFTER 5 DAYS OF INCUBATION. Complete Time of 1ST Reevaluation: 19:30 Reevaluation 1ST: Unchanged Patient Education/Counseling: Other Family Education/Counseling: Diagnosis, Treatment, Need For Follow Up Comments Patient was brought via ambulance today due to generalized weakness On initial evaluation, the patient is febrile, tachycardic, saturating adequately on room air Physical exam is limited due to underlying cerebral palsy, there is grimacing noted on palpation of lower abdominal quadrants Chest x-ray shows no acute cardiopulmonary disease. Bronchovascular crowding due to low lung volumes. Initial labs show significant microcytic anemia with hemoglobin 7.0, potassium 5.2, AST 103 and ALT 46. Chest X-ray shows no acute cardiopulmonary disease and bronchovascular crowding due to low lung volumes. The patient was started on blood transfusion, IV antibiotics and IV fluids. Patient is admitted for further evaluation and management. Patient was started on sepsis protocol fluid of NS 30 cc/kg IV, Tylenol IV for fever SEPSIS Sepsis Screen Date sepsis recognized/suspect: May 25, 2025 Time Sepsis recognized/suspect: 1739 Recent Procedure: No On Antibiotic Therapy: No Respiratory Rate >20: No Heart Rate >90: Yes Temp<36 C (96.8 F) or >38.3 C: No SBP <90 or MAP <65 mmHG: No New Acute Mental Status Change: No Is the patient on CPAP, BIPAP,: No Physician Orders Chest Xray 1 View (05/25/25 18:16) Transfuse Blood Product (05/25/25 20:19) Vital Signs Date Time Temp Pulse Resp B/P (MAP) Pulse Ox O2 Delivery O2 Flow Rate FiO2 05/25/25 19:30 99 18 98 Room Air* 0 21 05/25/25 19:30 98.6 119 24 111/90 (97) 96 98.6 05/25/25 17:59 100.8 130 29 131/69 (89) 96 100.8 05/25/25 17:59 130 29 96 Room Air* 0 21 05/25/25 17:40 99.0 130 18 130/90 92 99.0 Laboratory Tests Test 05/25/25 18:41 05/25/25 18:55 Lactic Acid Level 1.3 mmol/L (0.4-2.0) White Blood Count 9.2 10^3/uL (4.4-10.8) Departure 1 Departure Time of Disposition: 22:55 (Juan is a 24-year-old female with prior medical history of cerebral palsy, anemia and recurrent UTIs, who presents today BIBA due to generalized weakness. Was initially found to be febrile, for this reason infectious workup was performed. Patient with history of recurrent UTIs, could have a urinary tract infection. Was initially started on 30 cc/kilogram IV fluid bolus. Was also given IV Tylenol for fever. Urinalysis has been ordered to evaluate for UTI. Family members also stating that she has a history of heavy menstrual cycles leading to anemia requiring a blood transfusion. Patient's hemoglobin today is 7, just finished her menstrual cycle, likely the cause of her significant anemia today. CBC with no critical leukocytosis. Metabolic panel shows mild hyperkalemia likely related to hemolysis from difficult IV access. Patient also with mild transaminitis. Patient will be transfused 1 unit PRBC. She will be admitted for further observation and management of fever and symptomatic anemia.) Impression: Primary Impression: Fever Additional Impression: Symptomatic anemia Disposition: 30 STILL A PATIENT Admit to: Med Surg Condition: Stable e-Prescriptions Lactulose (Lactulose) 10 Gm/15 Ml Desiree 10 GM PO DAILY for 30 Days, #200 ML Prov: DEMETRIUS FARRIS RESIDENT 11/13/25 Critical Care Note Critical Care Time?: Yes (45 min-critical care time only) Critical care comment: Patient with critical anemia, symptomatic anemia hemoglobin of 7 requiring 1 unit PRBC. Stability Stability form required: No SAIRA GEE May 25, 2025 18:16 BRIT MCMANUS MD May 25, 2025 22:58
--- NOTE | 2025-05-25 18:46 | DVH ---
CHEST RADIOGRAPH Indication: chest pain Technique: Single frontal view of the chest was obtained Comparison: XY CHEST PORTABLE on DOS: 11/20/24 FINDINGS: Lines and Tubes: None Lungs: No focal consolidation. Crowding due to low lung volumes. Pleura: No effusion. No pneumothorax. Cardiomediastinal contours: Unremarkable Bones: No acute osseous abnormality. IMPRESSION: No acute cardiopulmonary disease. Bronchovascular crowding due to low lung volumes.
[2025-05-25] MEDS: ACETAMINOPHEN IV 1000 MG/100ML (10MG/ML) IV ONE (18:55)
[2025-05-25] MEDS: SODIUM CHLORIDE 0.9% 1,500 ML IV ONE (19:09)
[2025-05-25 19:30] VITALS: PULSE 99; RESP 18; O2SAT 98
[2025-05-25 19:39] LABS: Albumin 4.5 g/dL (3.2-4.8); Alkaline Phosphatase 94 U/L (46-116); Anion Gap 13 (5-15); BUN/Creatinine Ratio 22.4 (10.0-20.0); Bilirubin, Total 0.5 mg/dL (0.2-1.0); Blood Urea Nitrogen 11 mg/dL (9-23); Calcium 8.7 mg/dL (8.7-10.4); Carbon Dioxide 20 mmol/L (20-31); Glucose 104 mg/dL (74-106); Sodium 143 mmol/L (136-145); Total Protein 7.4 g/dL (5.7-8.2)
[2025-05-25 19:42] LABS: Alanine Aminotransferase 46 U/L (7-40); Chloride 110 mmol/L (98-107); Potassium 5.2 mmol/L (3.5-5.1)
[2025-05-25 19:54] LABS: Hematocrit 27.7 % (36.0-46.0); Mean Corpuscular Hemoglobin 12.8 pg (28.0-32.0); Mean Corpuscular Volume 50.4 fL (80.0-100.0); Nucleated Red Blood Cells % 0.0 %
[2025-05-25 20:08] LABS: Hemoglobin 7.0 g/dL (12.2-16.2)
[2025-05-25] MEDS ORDERED: DOCUSATE SOD 100 MG CAP PO PRN (21:00)
[2025-05-25] MEDS ORDERED: POLYETHYLENE GLYCOL 17 GM PWDR PO PRN (21:00)
[2025-05-25] MEDS ORDERED: LACTULOSE 20Gm/30ML SOLN PO PRN (21:00)
--- NOTE | 2025-05-25 21:00 | DVHHPRES ---
History of Present Illness Resident Creating Document: MARJORIE BOSE History of Present Illness Patient is a 24-year-old female with past medical history of cerebral palsy and recurrent urinary tract and iron deficiency anemia, presented to [facility] ED with complaint of generalized weakness. The patient is nonverbal, and history is obtained from her brothers at the bedside. He report that around 4:00 PM, the patient appeared more pale, lethargic, began gagging and both eyes looked pale. Approximately 40 minutes later, her eyes rolled back, and her oxygen saturation was noted to be 80% and developed shortness of breath. Her last menstrual period was on 05/20/2025, and her brother reports heavy bleeding recently. According to her brothers, who are her primary caregivers, the patient has been well in recent days. They deny any fever, lethargy, changes in eating habits, or alterations in urine or bowel movements. On evaluation in the ED, patient is febrile, tachycardic, tachypnea and saturating adequately on room air. Initial labs show significant microcytic anemia with hemoglobin 7.0, potassium 5.2, AST 103 and ALT 46. Chest X-ray shows no acute cardiopulmonary disease and bronchovascular crowding due to low lung volumes. The patient was started on blood transfusion, IV antibiotics and IV fluids. Patient is admitted for further evaluation and management. Past Medical History cerebral palsy, recurrent urinary tract, iron deficiency anemia Past Surgical History Left-sided hip surgery 10 years ago Family History Older sister: Liver cancer. Mother: Diabetes mellitus Smoke: No ALCOHOL: none Drugs: None Review of Systems Review of Systems Constitutional: Fatigue, generalized weakness Eyes: No Pain, No Vision change, No Conjunctivae inflammation, No Eyelid inf lammation, No Other, No Redness ENT: No Ear pain, No Ear discharge, No Nose pain, No Nose discharge, No Nose congestion, No Mouth pain, No Mouth swelling, No Throat pain, No Throat swelling, No Other Cardiovascular: No Chest Pain, No Palpitations, No Orthopnea, No Paroxysmal No Dyspnea, No Edema, No Lt Headedness, No Other Respiratory: No Cough, No Dry, No Shortness of breath, No SOB with exertion, No Wheezing, No Hemoptysis, No Pleuritic Pain, No Sputum, No Other Gastrointestinal: No Nausea, No Vomiting, Abdominal Pain, No Diarrhea, Constipation, No Melena, No Hematochezia, No Other Genitourinary: No Dysuria, No Frequency, No Incontinence, No Hematuria, No Retention, No Other Musculoskeletal: No other, No neck pain, No shoulder pain, No arm pain, No back pain, No hand pain, No leg pain, No foot pain Skin: No Rash, No Lesions, No Jaundice, No Bruising, No Other Allergies: Coded Allergies: No Known Drug Allergy (Verified Allergy, Unknown, 04/09/22) Exam Vital Signs Vital Signs Date Time Temp Pulse Resp B/P (MAP) Pulse Ox O2 Delivery O2 Flow Rate FiO2 05/25/25 19:30 98.6 119 24 111/90 (97) 96 98.6 05/25/25 17:59 Room Air* 0 21 Exam General Appearance: Cooperative. Well developed. Well nourished. NAD Head Exam: Normal inspection Neck Exam: Normal inspection. Non-tender. Normal alignment Pulmonary/Respiratory: Chest non-tender. Clear bilateral breath sounds, no crackles, no wheezing. Cardiovascular/Chest: Regular rate and rhythm. No murmurs. No JVD. Peripheral Pulses: 2+ Radial (R). 2+ Radial (L). 2+ Pedal (R). 2+ Pedal (L) Abdominal Exam: Lower abdominal tenderness. Normal bowel sounds. Soft. normal abdomen, no visible veins, No hepatospenomegaly. No masses Ankle Exam: Negative ankle edema Lower extremities: Negative lower extremity edema Neuro/Mental Status: A&O x4. Coherent. Thoughts/Psych: Normal thought pattern. Appropriate mood and affect. Good judgement and insight Skin Exam: Normal inspection. Normal color. Warm. Dry Labs/Xrays Labs Test 05/25/25 18:55 05/25/25 18:41 Range/Units White Blood Count 9.2 4.4-10.8 10^3/uL Red Blood Count 5.51 H 4.0-5.20 10^6/uL Hemoglobin 7.0 *L 12.2-16.2 g/dL Hematocrit 27.7 L 36.0-46.0 % Mean Corpuscular Volume 50.4 L 80.0-100.0 fL Mean Corpuscular Hemoglobin 12.8 L 28.0-32.0 pg Mean Corpuscular Hemoglobin Concent 25.4 L 32.0-36.0 g/dL Red Cell Distribution Width 23.7 H 11.8-14.3 % Platelet Count 330 140-450 10^3/uL Mean Platelet Volume 9.3 6.9-10.8 fL Neutrophils (%) (Auto) 83.2 H 37.0-80.0 % Lymphocytes (%) (Auto) 10.1 10.0-50.0 % Monocytes (%) (Auto) 5.4 0.0-12.0 % Eosinophils (%) (Auto) 0.5 0.0-7.0 % Basophils (%) (Auto) 0.8 0.0-2.0 % Neutrophils # (Auto) 7.7 1.6-8.6 10 ^3/uL Lymphocytes # (Auto) 0.9 0.4-5.4 10 ^3/uL Monocytes # (Auto) 0.5 0-1.3 10 ^3/uL Eosinophils # (Auto) 0 0-0.8 10 ^3/uL Basophils # (Auto) 0.1 0-0.2 10 ^3/uL Nucleated Red Blood Cells 0.0 % Sodium Level 143 136-145 mmol/L Potassium Level 5.2 H 3.5-5.1 mmol/L Chloride Level 110 H 98-107 mmol/L Carbon Dioxide Level 20 20-31 mmol/L Anion Gap 13 5-15 Blood Urea Nitrogen 11 9-23 mg/dL Creatinine 0.49 L 0.550-1.02 mg/dL Glomerular Filtration Rate Calc 133 >90 mL/min BUN/Creatinine Ratio 22.4 H 10.0-20.0 Serum Glucose 104 74-106 mg/dL Lactic Acid Level 1.3 0.4-2.0 mmol/L Calcium Level 8.7 8.7-10.4 mg/dL Total Bilirubin 0.5 0.2-1.0 mg/dL Aspartate Amino Transferase (AST) 103 H 13-40 U/L Alanine Aminotransferase (ALT) 46 H 7-40 U/L Alkaline Phosphatase 94 46-116 U/L Total Protein 7.4 5.7-8.2 g/dL Albumin 4.5 3.2-4.8 g/dL SEPSIS Sepsis Screen Date sepsis recognized/suspect: May 25, 2025 Time Sepsis recognized/suspect: 1739 Recent Procedure: No On Antibiotic Therapy: No Respiratory Rate >20: No Heart Rate >90: Yes Temp<36 C (96.8 F) or >38.3 C: No SBP <90 or MAP <65 mmHG: No New Acute Mental Status Change: No Is the patient on CPAP, BIPAP,: No Physician Orders Complete Blood Count (05/25/25 18:16) Urinalysis (05/25/25 18:16) Blood Culture (05/25/25 18:16) Chest Xray 1 View (05/25/25 18:16) Rbc Morphology (05/25/25 18:55) Type And Screen (05/25/25 20:19) Transfuse Blood Product (05/25/25 20:19) Vital Signs Date Time Temp Pulse Resp B/P (MAP) Pulse Ox O2 Delivery O2 Flow Rate FiO2 05/25/25 19:30 98.6 119 24 111/90 (97) 96 98.6 05/25/25 17:59 100.8 130 29 131/69 (89) 96 100.8 05/25/25 17:59 130 29 96 Room Air* 0 21 05/25/25 17:40 99.0 130 18 130/90 92 99.0 Laboratory Tests Test 05/25/25 18:41 05/25/25 18:55 Lactic Acid Level 1.3 mmol/L (0.4-2.0) White Blood Count 9.2 10^3/uL (4.4-10.8) Medications Medications Dose Ordered Sig/Eric Route Start Time Stop Time Status Last Admin Dose Admin Acetaminophen 1,000 mg ONCE ONCE IV 05/25/25 18:30 05/25/25 18:31 DC 05/25/25 18:55 1,000 MG Sodium Chloride 1,500 ml @ 1,500 mls/hr ONCE ONCE IV 05/25/25 18:30 05/25/25 19:29 DC 05/25/25 19:09 1,500 MLS/HR Assessment/Plan Assessment/Plan Cerebral palsy Iron deficient anemia Microcytic anemia Ferrous Sulfate 325 MG PO daily Zofran 4 MG IV q4h IV NS 75 MLS/HR one Stool occult blood Blood culture Urine bacterial culture Recurrent UTI Ceftriaxone IV daily UA and UDS monitor Severe constipation Colace 100 MG PO bid Lactulose 30 ML PO daily MiraLAX 17 GM PO daily Hyperkalemia Lokelma Bilateral large ovarian cysts Pelvis US: Probable bilateral large ovarian cysts. Right ovary measures 5.8 x 5.4 x 4.3 cm. 4.5 x 4.2 x 2.8 cm anechoic cyst. Left ovary measures 6.3 x 4.7 x 3.9 cm . 5.1 x 4.5 x 3.2 cm anechoic cyst. Diet: Regular Goals of care: Full code, discussed for >30 minutes on 05/25/25 Plan discussed with patient Plan discussed with Dr. Napoles Plan discussed with: Patient, Other (Brother) Date of Service: May 25, 2025 Billing Provider: GEOFF NAPOLES MD Common Visit Codes: 10404-GJQNWVN INP/OBS CARE (HIGH) Secondary Visit Codes: 47883-[id number] CARE PLAN 30 MINUTES MARJORIE BOSE RESIDENT May 25, 2025 21:00
[2025-05-25] MEDS ORDERED: ACETAMINOPHEN 325 MG TAB PO PRN (21:45)
[2025-05-25 21:59] LABS: Iron 65.0 ug/dL (50-170)
[2025-05-25 22:02] LABS: Total Iron Binding Capacity 367.0 ug/dL (250-425)
[2025-05-25 22:03] LABS: INR 1.04 (0.9-1.15); Partial Thromboplastin Time 20.6 SEC (24.5-34.5); Prothrombin Time 11.0 sec (9.3-11.8)
[2025-05-25 22:18] LABS: Anisocytosis Moderate
[2025-05-25 22:20] LABS: Tear Drop Cells MODERATE
--- NOTE | 2025-05-25 22:23 | DVH ---
COMPUTERIZED TOMOGRAPHY ABDOMEN AND PELVIS WITHOUT CONTRAST REASON FOR EXAM: abdominal pain. Abdominal distention. COMPARISON: CT CT AB PEL WO CON-NO ORAL OR IV on DOS: 11/20/24 TECHNIQUE: Spiral scans were acquired from the diaphragm to the symphysis pubis without intravenous contrast administration. 2-D coronal and sagittal reformatted images were provided. Radiation optimization: All CT scans at this facility use at least one of these dose optimization techniques: Automated exposure control mA and/or kV adjustment per patient size (includes targeted exams where dose is matched to clinical indication) or iterative reconstruction. RADIATION DOSE: CTDI: 8.63 mGy DLP: 449.35 mGy-cm FINDINGS: The visualized lung bases are grossly clear. There is no pleural effusion. There is no pericardial effusion. Extensive motion artifact and streak artifact from the patient's arms degrade evaluation. The spleen is borderline enlarged at 15.5 cm in length. The liver is grossly normal in size. Streak artifact degrades evaluation of the liver surface. Evaluation of the abdominal organs is suboptimal in the absence of intravenous contrast. The gallbladder is poorly visualized. No calcified gallstone is identified. The pancreas is poorly visualized. The adrenal glands are grossly unremarkable. The kidneys are similar in size. There is no hydronephrosis of either kidney. There is no abdominal aortic aneurysm. The urinary bladder is mildly distended but appears otherwise unremarkable. The uterus is anteverted. The left ovary measures approximately 5.8 cm. The right ovary measures approximately 6.1 cm. There is an approximately 9 cm stool ball distending the rectum and displacing the uterus and bladder against the anterior pelvic wall. The colonic stool burden is [id number]. The appendix is not seen. There is no pathologic distention of the small bowel. No pneumoperitoneum is identified. No acute osseous abnormality is identified. There is chronic deformity of bilateral hip joints. IMPRESSION: Extensive motion artifact and streak artifact from the patient's arms degraded evaluation. Large stool ball distending the rectum displaces the uterus and bladder against the anterior pelvic wall. The overall stool burden is moderate-to- large consistent with constipation. Borderline splenomegaly at 15.5 cm in length. Prominence of both ovaries. Correlate clinically with history and physical exam. If there is any concern for ovarian torsion, recommend pelvic ultrasound.
[2025-05-25] MEDS: SODIUM CHLORIDE 0.9% 1,000 ML IV ONE (22:25)
[2025-05-25] MEDS: FERROUS SULFATE 325mg EC TAB PO ONE (22:26)
[2025-05-25] MEDS: SODIUM ZIRCONIUM CYCL 10 GM PAK PO ONE (22:40)
[2025-05-26 01:05] VITALS: BP 89/68; PULSE 120; RESP 17; TEMP 98.7
[2025-05-26 01:20] VITALS: BP 102/66; PULSE 116; RESP 12; TEMP 99.2
[2025-05-26] MEDS: BISACODYL 5 MG EC TAB PO ONE (01:30)
[2025-05-26] MEDS ORDERED: LACTULOSE 20Gm/30ML SOLN PO PRN (01:30)
[2025-05-26] MEDS: FLEET ENEMA(ADULT) 135 ML PR ONE (01:30)
[2025-05-26 02:58] LABS: COVID19 ANTIGEN SOFIA FIA NEGATIVE (NEGATIVE)
--- NOTE | 2025-05-26 03:24 | DVH ---
INDICATION: r/o ovarian torsion TECHNIQUE: Real time transabdominal ultrasound imaging of the pelvis was performed with morales scale, color flow, and spectral Doppler. COMPARISON: CT 05/25/2025 FINDINGS: The uterus is anteverted and measures 7.8 x 4.6 x 3.1 cm. The endometrial stripe measures 0.8 cm. Right ovary measures 5.8 x 5.4 x 4.3 cm. 4.5 x 4.2 x 2.8 cm anechoic cyst Arterial and venous flow is present. Left ovary measures 6.3 x 4.7 x 3.9 cm . 5.1 x 4.5 x 3.2 cm anechoic cyst. Arterial and venous flow is present. No free fluid. IMPRESSION: Probable bilateral large ovarian cysts, however given appearance on CT and ultrasound, follow-up ultrasound in 6 weeks is recommended
[2025-05-26 04:21] LABS: Urine Protein, UAD Negative (Negative)
[2025-05-26 04:30] VITALS: BP 125/89; PULSE 120; RESP 17; TEMP 99.2
[2025-05-26 07:14] LABS: Hemoglobin 8.8 g/dL (12.2-16.2)
[2025-05-26 07:16] LABS: Hematocrit 32.2 % (36.0-46.0); Mean Corpuscular Hemoglobin 14.9 pg (28.0-32.0); Mean Corpuscular Volume 54.4 fL (80.0-100.0); Nucleated Red Blood Cells % 0.1 %
[2025-05-26 07:32] LABS: Albumin 4.6 g/dL (3.2-4.8); Alkaline Phosphatase 92 U/L (46-116); Anion Gap 13 (5-15); BUN/Creatinine Ratio 16.7 (10.0-20.0); Calcium 9.0 mg/dL (8.7-10.4); Glucose 88 mg/dL (74-106); Potassium 4.1 mmol/L (3.5-5.1); Sodium 142 mmol/L (136-145); Total Protein 7.5 g/dL (5.7-8.2)
[2025-05-26 07:33] LABS: Alanine Aminotransferase 46 U/L (7-40); Bilirubin, Total 0.9 mg/dL (0.2-1.0); Blood Urea Nitrogen 6 mg/dL (9-23); Carbon Dioxide 20 mmol/L (20-31); Chloride 109 mmol/L (98-107)
[2025-05-26 07:46] LABS: Anisocytosis Moderate; Ovalocytes FEW; Tear Drop Cells MODERATE
[2025-05-26] MEDS: ERGOCALCIFEROL 50,000 UNIT(1.25MG) CAP PO SCH (09:29)
[2025-05-26] MEDS ORDERED: FERROUS SULFATE 325mg EC TAB PO SCH (10:00)
--- NOTE | 2025-05-26 10:46 | DVH ---
Bilateral lower extremity venous duplex Clinical History:edema Comparison: US PELVIC on DOS: 05/26/25, LOWER EXTREMITY NON JOINT on DOS: 04/10/22 Findings: Duplex Doppler evaluation of the deep venous systems of both lower extremities from the common femoral veins to the popliteal veins including color Doppler and spectral/pulsed waveform analysis was performed. RIGHT SIDE: The common femoral vein demonstrates appropriate compressibility and waveform variability. There is compressibility/patency of the great saphenous vein at the proximal thigh. The femoral vein demonstrates appropriate compressibility and waveform variability. The deep femoral vein demonstrates appropriate compressibility and waveform variability. The popliteal vein demonstrates appropriate compressibility and waveform variability. There is normal compressibility at the tibioperoneal trunk. LEFT SIDE: The common femoral vein demonstrates appropriate compressibility and waveform variability. There is compressibility/patency of the great saphenous vein at the proximal thigh. The femoral vein demonstrates appropriate compressibility and waveform variability. The deep femoral vein demonstrates appropriate compressibility and waveform variability. The popliteal vein demonstrates appropriate compressibility and waveform variability. There is normal compressibility at the tibioperoneal trunk. IMPRESSION: No right or left femoropopliteal venous thrombosis. If clinical concern/symptoms persist or worsen, short-interval follow-up study is suggested. END IMPRESSION:
[2025-05-26] MEDS ORDERED: ERGOCALCIFEROL 50,000 UNIT(1.25MG) CAP PO SCH (12:00)
[2025-05-26] MEDS: IRON SUCROSE COMPLEX 110 ML IV SCH (12:52)
[2025-05-26] MEDS: ONDANSETRON HCL 4 MG/2 ML VIAL IV PRN (17:01)
[2025-05-26 18:20] LABS: Hematocrit 34.6 % (36.0-46.0); Hemoglobin 9.1 g/dL (12.2-16.2)
--- NOTE | 2025-05-26 21:09 | DVHPNRES ---
Progress Note Date Seen: May 26, 2025 Resident Creating Document: JAMARI VALLEJO RESIDENT Has the PT tested + for MRSA If YES, has PT been informed?: No Medical Necessity Reason Pt with a Central, PICC or Fol: No Subjective Review of Systems Carolynn Vanegas is a 24-year-old female patient, with past medical history of cerebral palsy (since ) , recurrent urinary tract and iron deficiency anemia. The patient came to [facility] ED with a chied complaint of 1day of generalized weakness. The patient is nonverbal, and history is obtained from her brother at the bedside. The patient's brother report the patient had a episode of near loss of consciousness, appeared more pale, lethargic, began gagging and both eyes looked pale. Approximately 40 minutes later, her eyes rolled back, and her oxygen saturation was noted to be 80% and developed shortness of breath. Her last menstrual period was on 05/20/2025, and her brother reports heavy bleeding recently. According to her brother, who are her primary caregiver, the patient has been well in recent days. They deny any fever, lethargy, changes in eating habits, or alterations in urine or bowel movements. On evaluation in the ED, patient is febrile, tachycardic, tachypnea and saturating adequately on room air. Initial labs show significant microcytic anemia with hemoglobin 7.0, potassium 5.2, AST 103 and ALT 46. Chest X-ray shows no acute cardiopulmonary disease and bronchovascular crowding due to low lung volumes. The patient was started on blood transfusion, IV antibiotics and IV fluids. Patient is admitted for further evaluation and management. Past Medical History: cerebral palsy, recurrent urinary tract, iron deficiency anemia Past Surgical History: Left-sided hip surgery 10 years ago Family History: Older sister: Liver cancer. Mother: Diabetes mellitus Smoke: No, no alcohol, none. Drugs: None. Hospital course. On 05/26/25, the patient was evaluated and examined at bedside. Vital signs, chart and labs were reviewed. Hb was 7.0mg/dl, due to low hemoglobin, 1 unit of RBC was transfused. The repeat HB was 8.8mg/dl. Lactic acid is 1.3. UA showed UTI, urine and blood cultures were ordered. Patient was hyperkalemic, this was corrected. AST and ALT were slightly elevated, we will continue monitoring. The patient's brother reports the patient prakash a bowel movement today. US showed bilateral ovarian cysts. We will continue following up this patient progress. Review of Systems Constitutional: Fatigue, generalized weakness Eyes: No Pain, No Vision change, No Conjunctivae inflammation, No Eyelid inflammation, No Other, No Redness ENT: No Ear pain, No Ear discharge, No Nose pain, No Nose discharge, No Nose congestion, No Mouth pain, No Mouth swelling, No Throat pain, No Throat swelling, No Other Cardiovascular: No Chest Pain, No Palpitations, No Orthopnea, No Paroxysmal No Dyspnea, No Edema, No Lt Headedness, No Other Respiratory: No Cough, No Dry, No Shortness of breath, No SOB with exertion, No Wheezing, No Hemoptysis, No Pleuritic Pain, No Sputum, No Other Gastrointestinal: No Nausea, No Vomiting, No Diarrhea, Constipation, No Melena, No Hematochezia, No Other Genitourinary: No Dysuria, No Frequency, No Incontinence, No Hematuria, No Retention, No Other Musculoskeletal: No other, No neck pain, No shoulder pain, No arm pain, No back pain, No hand pain, No leg pain, No foot pain Skin: No Rash, No Lesions, No Jaundice, No Bruising, No Other Allergies: No Known Drug Allergy (Verified Allergy, Unknown, 04/09/22) Objective vital signs Vital Sign Date Time Temp Pulse Resp B/P (MAP) Pulse Ox O2 Delivery O2 Flow Rate FiO2 05/26/25 14:00 98.8 113 21 124/87 (99) 95 98.8 05/26/25 07:30 Room Air* 0 21 Total Intake and Output 05/25/25 05/25/25 05/26/25 15:00 23:00 07:00 Intake Total 125 ml 975 ml Output Total 0 ml Balance 125 ml 975 ml medications Current Medications Medications Dose Ordered Sig/Eric Route Start Time Stop Time Status Last Admin Dose Admin Ondansetron HCl 4 mg Q4HP PRN IV 05/25/25 21:00 05/26/25 17:01 4 MG Docusate Sodium 100 mg BIDPRN PRN PO 05/25/25 21:00 Polyethylene Glycol 17 gm DAILYPRN PRN PO 05/25/25 21:00 Lactulose 30 ml DAILYP PRN PO 05/25/25 21:00 Ceftriaxone Sodium 50 ml @ 100 mls/hr DAILY@09 IV 05/26/25 09:00 05/26/25 09:08 100 MLS/HR Acetaminophen 650 mg Q6HP PRN PO 05/25/25 21:45 Ergocalciferol 50,000 unit Q7D PO 05/26/25 09:15 05/26/25 09:29 50,000 UNIT Examination General Appearance: Bed bound patient with cerebral palsy, non verbal, malnourish, pale. Head Exam: Normal inspection Neck Exam: Normal inspection. Non-tender. Normal alignment Pulmonary/Respiratory: Chest non-tender. Clear bilateral breath sounds, no crackles, no wheezing. Cardiovascular/Chest: Regular rate and rhythm. No murmurs. No JVD. Peripheral Pulses: 2+ Radial (R). 2+ Radial (L). 2+ Pedal (R). 2+ Pedal (L) Abdominal Exam: Normal bowel sounds. Soft. Flat. Upper extremities in a fixed position, rigid, muscular atrophic Lower extremities: in a fixed position, rigid, muscular atrophic : No vaginal bleeding Rectal exam: No external hemorrhoids, no active bleeding, rectal sphincter tone is normal, a lot of feces on rectal valve. Note: rectal and exam performed with the consent of POA, in presence of commercial director CECY Roblero, FOBT sample was sent to the lab. Neuro/Mental Status: Alert, oriented in person. The patient responds to her name. Skin Exam: Pale, Normal inspection, no pressure ulcers. laboratory and microbiology Laboratory Tests 05/26/25 18:00 05/26/25 06:52 Test 05/26/25 06:52 Range/Units Serum Glucose 88 74-106 mg/dL Microbiology Date/Time Source Procedure Growth Status 05/25/25 19:31 Blood Blood Culture - Preliminary NO GROWTH AFTER 24 HOURS OF INCUBATION. Resulted Problem List/Assessment/Plan Problem List/Assessment/Plan #Chronic Cerebral palsy (since ) #Acute on chronic Iron deficient anemia #Acute microcytic anemia Ferrous Sulfate 325 MG PO daily Zofran 4 MG IV q4h IV NS 75 MLS/HR one Stool occult blood: negative #Acute UTI possible due to cystitis. #Recurrent UTI IV antibiotic: Ceftriaxone IV 1gr daily UA: positive for UTI Blood culture: pending Urine bacterial culture:pending #Acute on chronic severe constipation Colace 100 MG PO bid Lactulose 30 ML PO daily MiraLAX 17 GM PO daily #Bilateral large ovarian cysts Pelvis US: Probable bilateral large ovarian cysts. #Chronic Hypocaloric malnutrition BMI: 16.5 Nutrition consult Goals of care: Full code, discussed for >35 minutes Diet: Regular DVT prophylactics PUD prophylactics Plan discussed with patient Plan discussed with Dr. Napoles PCP: Dr. Vazquez Plan discussed with: Patient and her POA: Brother. critical care time 44 mins Plan discussed with: Patient My Orders My Orders Orders - JAMARI VALLEJO Procedure Category Date Status Time Drug Screen LAB 05/26/25 Logged 06:27 Bilat Lower Dvt US 05/26/25 Resulted 08:58 Ergocalciferol PHA 05/26/25 In Process (Vitamin D 50,000 09:15 Communication Order ORDERS 05/26/25 Transmitted 17:02 Communication Order ORDERS 05/26/25 Transmitted 17:12 CC Plasma Assessment Blood Product Administration S: 0105 Date of Service: May 26, 2025 Billing Provider: GEOFF NAPOLES MD Common Visit Codes: 06060-[id number] CARE 30-74 MIN JAMARI VALLEJO RESIDENT May 26, 2025 21:09 GEOFF NAPOLES MD May 27, 2025 10:02
[2025-05-26 22:50] VITALS: BP 139/90; PULSE 113; RESP 18; TEMP 98.3; O2SAT 100
[2025-05-26 23:07] VITALS: BP 139/90; PULSE 113; RESP 18; TEMP 98.3; O2SAT 100
[2025-05-27 01:00] VITALS: BP 115/94; PULSE 93; RESP 18; TEMP 97.8; O2SAT 97
[2025-05-27 05:00] VITALS: BP 123/81; PULSE 71; RESP 18; TEMP 98; O2SAT 99
[2025-05-27] MEDS: PANTOPRAZOLE 40 MG TAB PO SCH (06:20)
[2025-05-27 06:59] LABS: Hematocrit 28.5 % (36.0-46.0); Hemoglobin 8.0 g/dL (12.2-16.2)
[2025-05-27 07:21] LABS: Albumin 4.0 g/dL (3.2-4.8); Alkaline Phosphatase 80 U/L (46-116); Anion Gap 12 (5-15); Calcium 9.0 mg/dL (8.7-10.4); Carbon Dioxide 21 mmol/L (20-31); Glucose 84 mg/dL (74-106); Potassium 4.1 mmol/L (3.5-5.1); Sodium 145 mmol/L (136-145); Total Protein 6.6 g/dL (5.7-8.2)
[2025-05-27 07:22] LABS: Bilirubin, Total 0.6 mg/dL (0.2-1.0)
[2025-05-27 07:25] LABS: BUN/Creatinine Ratio 11.6 (10.0-20.0); Blood Urea Nitrogen < 5 mg/dL (9-23); Chloride 112 mmol/L (98-107)
[2025-05-27 07:26] LABS: Alanine Aminotransferase 74 U/L (7-40)
[2025-05-27 08:00] VITALS: PULSE 87; RESP 18
[2025-05-27 08:34] VITALS: BP 119/89; PULSE 96; RESP 16; TEMP 98; O2SAT 94
[2025-05-27] MEDS ORDERED: LACT10SO3 PO (10:14)
[2025-05-27 11:04] LABS: Hematocrit 28.6 % (36.0-46.0); Hemoglobin 7.7 g/dL (12.2-16.2)
[2025-05-27] MEDS: IRON SUCROSE COMPLEX 110 ML IV SCH (12:00)
[2025-05-27 13:00] VITALS: BP 110/74; PULSE 95; RESP 16; TEMP 97.7; O2SAT 99
[2025-05-27 15:09] VITALS: TEMP 36.5
--- NOTE | 2025-05-27 18:36 | DVHDSRES ---
Discharge Summary Date of Admission Resident Creating Document: JAMARI VALLEJO RESIDENT May 25, 2025 at 21:00 Date of Discharge: May 27, 2025 Admitting Diagnosis #Chronic Cerebral palsy (since ) #Acute on chronic iron deficient anemia #Acute severe microcytic anemia #Acute UTI, possible due to cystitis. #Recurrent UTI #Acute on chronic severe constipation Labs/Diagnostic Data: Laboratory Results Test 05/27/25 10:18 05/27/25 06:08 05/26/25 10:15 05/26/25 09:24 Hemoglobin 7.7 g/dL (12.2-16.2) Hematocrit 28.6 % (36.0-46.0) Sodium Level 145 mmol/L (136-145) Potassium Level 4.1 mmol/L (3.5-5.1) Chloride Level 112 mmol/L (98-107) Carbon Dioxide Level 21 mmol/L (20-31) Anion Gap 12 (5-15) Blood Urea Nitrogen < 5 mg/dL (9-23) Creatinine 0.43 mg/dL (0.550-1.02) Glomerular Filtration Rate Calc 137 mL/min (>90) BUN/Creatinine Ratio 11.6 (10.0-20.0) Serum Glucose 84 mg/dL (74-106) Calcium Level 9.0 mg/dL (8.7-10.4) Total Bilirubin 0.6 mg/dL (0.2-1.0) Aspartate Amino Transferase (AST) 44 U/L (13-40) Alanine Aminotransferase (ALT) 74 U/L (7-40) Alkaline Phosphatase 80 U/L (46-116) Total Protein 6.6 g/dL (5.7-8.2) Albumin 4.0 g/dL (3.2-4.8) D-Dimer, Quantitative 0.51 mg/L FEU (0.0-0.49) Stool Occult Blood Negative (Negative) Stool Occult Blood Sample #3 (Negative) Test 05/26/25 06:52 05/26/25 03:59 05/26/25 01:40 05/25/25 18:58 White Blood Count 7.6 10^3/uL (4.4-10.8) Red Blood Count 5.92 10^6/uL (4.0-5.20) Mean Corpuscular Volume 54.4 fL (80.0-100.0) Mean Corpuscular Hemoglobin 14.9 pg (28.0-32.0) Mean Corpuscular Hemoglobin Concent 27.3 g/dL (32.0-36.0) Red Cell Distribution Width 28.4 % (11.8-14.3) Platelet Count 315 10^3/uL (140-450) Mean Platelet Volume 8.7 fL (6.9-10.8) Neutrophils (%) (Auto) 67.8 % (37.0-80.0) Lymphocytes (%) (Auto) 23.9 % (10.0-50.0) Monocytes (%) (Auto) 7.1 % (0.0-12.0) Eosinophils (%) (Auto) 0.8 % (0.0-7.0) Basophils (%) (Auto) 0.4 % (0.0-2.0) Neutrophils # (Auto) 5.2 10 ^3/uL (1.6-8.6) Lymphocytes # (Auto) 1.8 10 ^3/uL (0.4-5.4) Monocytes # (Auto) 0.5 10 ^3/uL (0-1.3) Eosinophils # (Auto) 0.1 10 ^3/uL (0-0.8) Basophils # (Auto) 0 10 ^3/uL (0-0.2) Nucleated Red Blood Cells 0.1 % Platelet Estimate Adequate Hypochromasia (manual) Marked Poikilocytosis (manual) Moderate Anisocytosis (manual) Moderate Microcytosis Marked Tear Drop Cells Moderate Ovalocytes Few Reticulocyte Count (auto) 1.95 % (0.5-1.5) Ferritin 3.3 ng/mL (10-291) Lactate Dehydrogenase 277 U/L (120-246) Vitamin B12 Level 473 pg/mL (211-911) Vitamin D 25-Hydroxy 23.1 ng/mL (30.0-100) Beta HCG, Quantitative 0.9 mIU/mL (1.5-4.2) Urine Color Light-yellow (Yellow) Urine Clarity Turbid (Clear) Urine pH 6.5 (5.0-9.0) Urine Specific [place] 1.019 (1.001-1.035) Urine Protein Negative (Negative) Urine Ketones Negative (Negative) Urine Blood Negative /uL (Negative) Urine Nitrite Negative (Negative) Urine Bilirubin Negative (Negative) Urine Urobilinogen Normal mg/dL (Negative) Urine Leukocyte Esterase Negative /uL (Negative) Urine RBC None seen /hpf (0 - 4) Urine Microscopic WBC 3 /HPF (0-5) Urine Squamous Epithelial Cells None seen /hpf (<5) Urine Bacteria None seen /hpf (None Seen) Urine Mucus Few (None Seen) Urine Glucose Normal mg/dL (Normal) Influenza Type A Antigen Negative (Negative) Influenza Type B Antigen Negative (Negative) SARS-CoV-2 Antigen (Rapid) Negative (NEGATIVE) Prothrombin Time 11.0 sec (9.3-11.8) Prothrombin Time INR 1.04 (0.9-1.15) Activated Partial Thromboplast Time 20.6 SEC (24.5-34.5) Test 05/25/25 18:41 Lactic Acid Level 1.3 mmol/L (0.4-2.0) Iron Level 65 ug/dL (50-170) Total Iron Binding Capacity 367 ug/dL (250-425) Percent Iron Saturation 17.7 % (15-50) Thyroid Stimulating Hormone (TSH) 2.06 uIU/mL (0.55-4.78) Other Laboratory Tests 05/27/25 10:18 05/27/25 06:08 05/26/25 06:52 Brief Hx & Hospital Course: Carolynn Vanegas is a 24-year-old female patient, with past medical history of cerebral palsy (since ) , recurrent urinary tract and iron deficiency anemia. The patient came to [facility] ED with a chied complaint of 1day of generalized weakness. The patient is nonverbal, and history is obtained from her brother at the bedside. The patient's brother report the patient had a episode of near loss of consciousness, appeared more pale, lethargic, began gagging and both eyes looked pale. Approximately 40 minutes later, her eyes rolled back, and her oxygen saturation was noted to be 80% and developed shortness of breath. Her last menstrual period was on 05/20/2025, and her brother reports heavy bleeding recently. According to her brother, who are her primary caregiver, the patient has been well in recent days. They deny any fever, lethargy, changes in eating habits, or alterations in urine or bowel movements. On evaluation in the ED, patient is febrile, tachycardic, tachypnea and saturating adequately on room air. Initial labs show significant microcytic anemia with hemoglobin 7.0, potassium 5.2, AST 103 and ALT 46. Chest X-ray shows no acute cardiopulmonary disease and bronchovascular crowding due to low lung volumes. The patient was started on blood transfusion, IV antibiotics and IV fluids. Patient is admitted for further evaluation and management. Past Medical History: cerebral palsy, recurrent urinary tract, iron deficiency anemia Past Surgical History: Left-sided hip surgery 10 years ago Family History: Older sister: Liver cancer. Mother: Diabetes mellitus Smoke: No, no alcohol, none. Drugs: None. Hospital course: during his hospital stay the patient was evaluated and assessed as follow: On 05/26/25, the patient was evaluated and examined at bedside. Vital signs, chart and labs were reviewed. Hb was 7.0mg/dl, due to low hemoglobin, 1 unit of RBC was transfused. The repeat HB was 8.8mg/dl. Lactic acid is 1.3. UA showed UTI, urine and blood cultures were ordered. Patient was hyperkalemic, this was corrected. AST and ALT were slightly elevated. The patient's brother reports the patient prakash a bowel movement on 05/26/25. US showed bilateral ovarian cysts. On 05/26/25, the patient was evaluated and examined at bedside. Vital signs, chart and labs were reviewed. Patient potassium level is within normal limits. The patient was treated with iron infusions. The patient's brother reports the patient prakash a bowel movement today. The patient's brother reports that the patient has already a referral to see the [facility]ELDER, he will make an appointment for follow up of the ovarian cysts. Due to significant improvement, the patient will be discharge home today. The patient will follow up with PCP in 1 week for recheck of hemoglobin and hematocrit. The patient will follow-up with gynecology. The patient will follow-up in the [place] clinic. I have spoken with the family members, all their questions and concerns were addressed. Review of Systems Constitutional: No fever, chills. Eyes: No Pain, No Vision change, No Conjunctivae inflammation, No Eyelid inflammation, No Other, No Redness ENT: No Ear pain, No Ear discharge, No Nose pain, No Nose discharge, No Nose congestion, No Mouth pain, No Mouth swelling, No Throat pain, No Throat swelling, No Other Cardiovascular: No Chest Pain, No Palpitations, No Orthopnea, No Paroxysmal No Dyspnea, No Edema, No Lt Headedness, No Other Respiratory: No Cough, No Dry, No Shortness of breath, No SOB with exertion, No Wheezing, No Hemoptysis, No Pleuritic Pain, No Sputum, No Other Gastrointestinal: No Nausea, No Vomiting, No Diarrhea, Constipation resolved. No Melena, No Hematochezia, No Other Genitourinary: No Dysuria, No Frequency, No Incontinence, No Hematuria, No Retention, No Other Musculoskeletal: No other, No neck pain, No shoulder pain, No arm pain, No back pain, No hand pain, No leg pain, No foot pain Skin: No Rash, No Lesions, No Jaundice, No Bruising, No Other Allergies: No Known Drug Allergy (Verified Allergy, Unknown, 04/09/22) Information provided by brother at bedside. Physical Exam: General Appearance: Bed bound patient with cerebral palsy, non verbal, malnourish. Head Exam: Normal inspection Neck Exam: Normal inspection. Non-tender. Normal alignment Pulmonary/Respiratory: Chest non-tender. Clear bilateral breath sounds, no crackles, no wheezing. Cardiovascular/Chest: Regular rate and rhythm. No murmurs. No JVD. Peripheral Pulses: 2+ Radial (R). 2+ Radial (L). 2+ Pedal (R). 2+ Pedal (L) Abdominal Exam: Normal bowel sounds. Soft. Flat. Upper extremities in a fixed position, rigid, muscular atrophic Lower extremities: in a fixed position, rigid, muscular atrophic Neuro/Mental Status: Alert, oriented in person. The patient responds to her name. Skin Exam: Pale, Normal inspection, no pressure ulcers. Condition at Discharge: Stable Final Diagnosis/Problems List #Chronic Cerebral palsy (since ) #Acute on chronic iron deficient anemia #Acute severe microcytic anemia #Acute UTI, possible due to cystitis. #Recurrent UTI #Acute on chronic severe constipation #Bilateral large ovarian cysts #Chronic Hypocaloric malnutrition Discharge Disposition: Home SNF Discharge Will this Physician continue t: No Discharge Instruct/Medications Diet: Regular Activity: No Restrictions, As Tolerated Follow Up/Referral: F/U with PCP in one week F/U with Gynecology (patient has a referral) F/U in D/C clinic Medications: As per EMR Scheduled Ferrous Sulfate (Iron), 325 MG PO BID Lactulose (Lactulose), 10 GM PO DAILY Pantoprazole Sodium Sesquihydr (Pantoprazole Sodium), 40 MG PO BID Discharge Statement: "Patient was advised to return to the ER or call 911 if any headaches, dizziness, shortness of breath, chest pain, abdominal pain, bleeding, fevers, or worsening of medical condition. Patient was counseled about treatment plan, medications, possible side effects, patientverbalized understanding. All questions were answered to the best of my ability. This discharge took greater then 30 minutes in planning, reviewing documentation, counseling the patient, and discussing with other team members." Discharge Care Plan Instructions Take Rx medications, Notify MD of any issues, Keep list of meds w/ you, Do not drink ETOH/smoke, Call 911 in an emergency, F/U w/ PCP ASSESSMENT ASSESSMENT Assessment #Chronic Cerebral palsy (since ) #Acute on chronic iron deficient anemia #Acute severe microcytic anemia #Acute UTI, possible due to cystitis. #Recurrent UTI #Acute on chronic severe constipation #Bilateral large ovarian cysts #Chronic Hypocaloric malnutrition Plan discussed with patient's brother (POA) and patient >35 min Plan discussed with Dr. Napoles PCP: Dr. Vazquez Plan discussed with: Patient and her POA: Brother. Date of Service: May 27, 2025 Billing Provider: GEOFF NAPOLES MD Common Visit Codes: 96773-RAW/OBS DISCH DAY >30min JAMARI VALLEJO RESIDENT May 27, 2025 18:36
[2025-05-28 11:55] LABS: Hepatitis C Antibody Negative (Negative)
== END 2025-05-27 16:45 | disposition home or self-care (01) | DRG 663 ==
LOC: ER 17:32 → EDBD 17:32 → OVERFLOW 21:00 → TELE-CENTR 05-26 22:50 → CENTRAL 05-27 08:46
PROVIDERS: ADMIT Internal Medicine; ATTEND Internal Medicine
PROC: 30233N1 Transfusion of Nonautologous Red Blood Cells into Peripheral Vein, Percutaneous Approach (ICD-10-PCS; principal; 2025-05-26)
DX: D50.9 Iron deficiency anemia, unspecified (principal); E44.1 Mild protein-calorie malnutrition; N30.90 Cystitis, unspecified without hematuria; G80.9 Cerebral palsy, unspecified; E87.5 Hyperkalemia; N83.202 Unspecified ovarian cyst, left side; N83.201 Unspecified ovarian cyst, right side; K59.00 Constipation, unspecified; Z20.822 Contact with and (suspected) exposure to COVID-19; Z83.3 Family history of diabetes mellitus; Z82.49 Family history of ischemic heart disease and other diseases of the circulatory system; Z80.0 Family history of malignant neoplasm of digestive organs; Z68.1 Body mass index [BMI] 19.9 or less, adult
CPT/HCPCS: 36415; 36430; 71045; 74176; 76856; 80053; 81001; 82270; 82306; 82607; 82728; 83540; 83550; 83605; 83615; 84443; 84702; 85014; 85018; 85025; 85045; 85379; 85610; 85730; 86706; 86803; 86850; 86900; 86901; 86920; 87040; 87086; 87426; 87804; 93970; 96361; 96374; 99291; G0378; J0131; J1756; J2405